=== PATIENT | male | born 1975 | race Caucasian/White ===

== ENCOUNTER → 2018-01-24 | Outpatient (REF) | payer OTHER ==
[~2018-01-24] MED LIST: BUPR-472 PO; LORA5TAB16 PO; PSEU1TAB PO
[2018-01-24 09:37] LABS: PLATELET COUNT, AUTOMATED 209 K/uL (150-450)
== END ==
LOC: ZZSTITCHES 09:26
PROVIDERS: ATTEND Physician Assistant
DX: L04.9 Acute lymphadenitis, unspecified (principal); R53.83 Other fatigue
CPT/HCPCS: 82040; 82247; 82310; 82374; 82435; 82565; 82947; 84075; 84132; 84155; 84295; 84450; 84460; 84520; 85025; 86308

== ENCOUNTER → 2018-04-08 | Outpatient (CLI) | payer OTHER ==
[~2018-04-08] MED LIST changes: +ARI2 PO; +FEXO-72 PO; +FLUT1DIS27 IH; +GUAI1200 PO; +NAPR1TAB10
== END ==
LOC: LAB 13:20
PROVIDERS: ATTEND Otolaryngology
DX: J30.9 Allergic rhinitis, unspecified (principal)
CPT/HCPCS: 36415; 86003

== ENCOUNTER → 2018-08-19 | Outpatient (CLI) | payer OTHER ==
[~2018-08-19] MED LIST changes: +FLUT12HF IH
== END ==
LOC: AUD 10:00
PROVIDERS: ATTEND Otolaryngology
DX: H93.19 Tinnitus, unspecified ear (principal)
CPT/HCPCS: 92557; 92570

== ENCOUNTER → 2019-03-03 | Outpatient (CLI) | payer OTHER ==
--- NOTE | 2019-03-03 11:31 | RADIOLOGY IMAGING REPORT ---
FACILITY: [facility] PATIENT NAME: Omar Hill : 1975 MR: [id number] V: [id number] EXAM DATE: ORDERING PHYSICIAN: MARSHALL GOMEZ TECHNOLOGIST: Location: [facility] Patient: Omar Hill : 1975 Visit/Account:[id number] Date of Sevice: 03/03/2019 Exam type: ORBITS FOREIGN BODY 1 VIEW History: Pre-MRI screening Comparison: April 20, 2016. Findings: No radiopaque metallic foreign bodies project over the orbits IMPRESSION: 1. No radiopaque metallic foreign bodies project over the orbits Report Dictated By: Jennifer Adame MD at 03/03/2019 11:24 AM Report E-Signed By: Jennifer Adame MD at 03/03/2019 11:24 AM [id number]:[email or web address]
--- NOTE | 2019-03-03 12:39 | RADIOLOGY IMAGING REPORT ---
FACILITY: [facility] PATIENT NAME: Omar Hill : 1975 MR: [id number] V: [id number] EXAM DATE: ORDERING PHYSICIAN: MARSHALL GOMEZ TECHNOLOGIST: Location: [facility] Patient: Omar Hill : 1975 Visit/Account:[id number] Date of Sevice: 03/03/2019 EXAMINATION: MRI cervical spine without IV contrast HISTORY: Radiculopathy, cervical region. Other spondylosis, cervical region. COMPARISON: None. TECHNIQUE: Multi-planar, multi-sequence cervical spine MRI was performed without intravenous contras t administration. FINDINGS: The exam is limited by patient motion artifact. Alignment: Normal. Vertebral marrow signal: 6 mm benign hemangioma in the C7 vertebral body. No acute fracture or marrow edema. Cranio-cervical junction: Negative. Visualized posterior fossa: Negative. Soft tissues: Negative. Cervical cord: Negative. Disc spaces: C1-2: Negative. C2-3: Negative. C3-4: Tiny annular fissure and central disc protrusion without significant central canal or foraminal stenosis. C4-5: Tiny annular fissure and central disc protrusion without significant central canal or foraminal stenosis. C5-6: Minimal posterior osteophyte disc complex without significant central canal or foraminal stenos is. C6-7: Broad-based posterior osteophyte disc complex eccentric to the left, with mild central canal st enosis and mild left foraminal stenosis. C7-T1: Negative. Upper thoracic spine: Negative. IMPRESSION: 1. Exam limited by patient motion, with mild degenerative disc disease, worst at C6-7 where there is mild spinal stenosis and mild left foraminal stenosis. Please see the findings for description of ind ividual level disease. 2. Tiny annular fissures at C3-4 and C4-5. Report Dictated By: Tomeka Dukes MD at 03/03/2019 12:29 PM Report E-Signed By: Tomeka Dukes MD at 03/03/2019 12:33 PM WSN:[email or web address]
== END ==
LOC: MRI 00:52
PROVIDERS: ATTEND Orthopaedic Surgery
DX: M54.12 Radiculopathy, cervical region (principal); M47.892 Other spondylosis, cervical region
CPT/HCPCS: 70030; 72141